=== PATIENT | female | born 1970 | race Caucasian/White ===

== ENCOUNTER 2017-06-10 22:45 | Emergency (ER) | payer OTHER ==
[~2017-06-10] VITALS: Ht 157.5 cm; Wt 75.0 kg
[2017-06-10] MEDS ORDERED: VISCOUS LIDOCAINE 2% 15 ML UDC PO STA (23:44)
[2017-06-10] MEDS ORDERED: MAGNESIUM/ALUMINUM HYDROXIDE/SIMETHICONE 30ML UDC PO STA (23:44)
[2017-06-10] MEDS ORDERED: FAMOTIDINE 20MG/2ML VIAL IV STA (23:44)
[2017-06-11 00:05] LABS: CHLORIDE 105 mEq/L (98-107)
[2017-06-11 00:07] LABS: BASOPHILS % 0.4 % (0.0-2.0); HEMATOCRIT. 38.7 % (36.0-48.0); LYMPHOCYTES % 18.2 % (20.0-50.0); MEAN CORPUSCULAR HEMOGLOBIN 29.3 pg (28.0-32.0); MEAN CORPUSCULAR VOLUME 87.3 fL (81.0-99.0); MEAN PLATELET VOLUME 8.6 fl (7.4-10.4); MONOCYTES % 8.6 % (2.0-8.0); NEUTROPHILS % 70.8 % (40.0-76.0); PLATELET 294 x1000/uL (130-400); RED BLOOD CELL COUNT 4.43 mill/uL (4.2-5.4); RED CELL DISTRIBUTION WIDTH 13.8 % (11.6-14.6)
[2017-06-11 00:08] LABS: PROTHROMBIN TIME 10.6 sec (9.4-11.6)
[2017-06-11 00:14] LABS: CARBON DIOXIDE 22 mEq/L (21-32)
[2017-06-11 01:20] LABS: CLARITY URINE CLEAR (CLEAR); COLOR URINE YELLOW (YELLOW); KETONES URINE NEGATIVE (NEGATIVE); LEUKOCYTE ESTERASE URINE 3+ (NEGATIVE); NITRITE URINE NEGATIVE (NEGATIVE); OCCULT BLOOD URINE 1+ (NEGATIVE); PH URINE 6.5 (4.5-8.0); PROTEIN URINE NEGATIVE (NEGATIVE); SPECIFIC GRAVITY URINE 1.018 (1.005-1.030); UROBILINOGEN URINE 0.2 E.U./dL (0.2-1.0)
[2017-06-11] MEDS ORDERED: CEFTRIAXONE SODIUM 1 G/VIAL IM ONE (02:15)
[2017-06-11] MEDS ORDERED: MORPHINE SULFATE 4 MG/ML CPJ (NOT FOR IM USE) IV ONE (02:30)
[2017-06-11] MEDS ORDERED: CEFTRIAXONE 1 G PREMIX 50 ML IV ONE (02:30)
[2017-06-11 02:55] VITALS: BP 129/72
== END 2017-06-11 03:36 | disposition home or self-care (01) ==
LOC: ER 23:03
DX: N30.00 Acute cystitis without hematuria (principal); R10.13 Epigastric pain; Z98.890 Other specified postprocedural states
CPT/HCPCS: 36415; 76705; 80053; 81001; 81025; 83690; 85025; 85610; 96365; 96375; 99285; J0696; J2270; J3490; Z7610